=== PATIENT | female | born 1945 | race Caucasian/White ===

== ENCOUNTER 2017-07-13 06:11 | Day surgery (SDC) | payer MEDICARE ==
[~2017-07-13] VITALS: Ht 160 cm; Wt 96.2 kg
[2017-07-13] MEDS ORDERED: SOLI10TA PO (07:22)
[2017-07-13] MEDS ORDERED: TRIA1TAB92 PO (07:22)
[2017-07-13] MEDS ORDERED: VERA180T PO (07:22)
[2017-07-13] MEDS ORDERED: APIX5TAB PO (07:22)
[2017-07-13] MEDS ORDERED: CHOL378P PO (07:23)
[2017-07-13] MEDS ORDERED: SOTA80TA PO (07:23)
[2017-07-13] MEDS ORDERED: FENTANYL CITRATE/PF 50MCG/ML 2ML VIAL ONE (09:13)
[2017-07-13] MEDS ORDERED: MIDAZOLAM HCL 5 MG/5 ML VIAL ONE (09:13)
[2017-07-13] MEDS ORDERED: TETRACAINE/BENZOCAINE/BUTAMBEN 20 GM SPRAY MM ONE (09:14)
[2017-07-13] MEDS ORDERED: LIDOCAINE HCL 2% JELLY 5ML ONE (09:14)
== END 2017-07-13 12:00 | disposition home or self-care (01) ==
LOC: CARD 06:11
PROVIDERS: ATTEND Specialist
DX: I48.91 Unspecified atrial fibrillation (principal); I34.0 Nonrheumatic mitral (valve) insufficiency; I11.9 Hypertensive heart disease without heart failure; E78.4 Other hyperlipidemia; Z79.899 Other long term (current) drug therapy
CPT/HCPCS: 92960; 93005; 93312; 99152; 99153; J2250; J3010